=== PATIENT | male | born 1950 ===

== ENCOUNTER 2024-11-11 13:27 | Outpatient (AMB) | payer MEDICARE, OTHER, SELFPAY ==
--- NOTE | 2024-11-11 13:34 | MHC.PC.OV ---
Vital Signs 11/11/24 13:38 Height 6 ft 1 in Weight 120.202 kg BMI 35.0 BP 124/70 Blood Pressure Location Rt brachial Position Sitting Pulse 70 Pulse Source Pulse Oximeter Temp 97.6 F Temp Source Axillary Pulse Oximetry (%) 97 Oxygen Delivery Method Room Air Intake Visit Reasons: medication & hip pain, bilateral Chairman President And Chief Executive Officer Required: No Accompanied by: Self / Same As Patient Allergies iodine Allergy (Mild, Verified 11/11/24 13:35) UNKNOWN Penicillins Allergy (Mild, Verified 11/11/24 13:35) UNKNOWN Medication List - Last Reconciled 11/11/24 by Mili Orozco MD apixaban (Eliquis) 5 mg PO BID atorvastatin 80 mg PO DAILY Basaglar KwikPen U-100 Insulin (insulin glargine) 50 units (0.5 mL) subcut DAILY NS benazepril 10 mg PO DAILY furosemide 40 mg PO DAILY furosemide 20 mg PO DAILY insulin aspart U-100 (Novolog FlexPen U-100 Insulin aspart) 1 sliding scale dose subcut USEASDIRECTD metoprolol succinate ER 50 mg PO DAILY metoprolol succinate ER 100 mg PO DAILY tamsulosin 0.8 mg PO DAILY Tobacco use date assessed: 11/11/24 Fall risk assessment: 1 Fall in past year Last assessed Fall Risk: 11/11/24 Dental Screening Dental Screen Date: 11/11/24 Did you have a dental visit in the last 12 months?: Yes Did you have a dental problem in the last 6 months where you did not have access to dental care?: No HPI HPI Comments History of Present Illness Details The patient is a 73 year old female with a past medical history of MS, BPH, HAIR on CPAP, CAD, htn, hld, diabetes presenting for follow up CV: On metoprolol, furosemide, eliquis. History of CAD s/p PCI. Cath 1999, 2005. Follows with [facility]nard 124/70. Increased exertional dyspnea. Diabetes: On basaglar 50 units daily. Short acting ~12 units TID with meals. Allergic to CGM adhesive. says bg less well controlled HAIR: on cpap MSK: Patient with bilateral hip pain. Not following with neurology for MS. Previously was seeing [facility] Colon cancer screening ROS see HPI PHYSICAL EXAM: GENERAL: Alert and oriented x 3. NAD EYES: EOMI. Anicteric. HENT: Moist mucous membranes. No scleral icterus. No cervical lymphadenopathy. LUNGS: Clear to auscultation bilaterally. CARDIOVASCULAR: Regular rate and rhythm. No murmur. No JVD. ABDOMEN: Soft, non-tender +bs EXTREMITIES: No edema. Non-tender. SKIN: No rashes or lesions. Warm. NEUROLOGIC: No focal neurological deficits. CN II-XII grossly intact PSYCHIATRIC: Cooperative. Appropriate mood and affect [facility] Family History Mother No problems noted. Father No problems noted. Social History Housing: House Patient Tobacco Use Status: Never used Tobacco e-Cigarette/Vaping Use: Never Used service: No Current occupational status: retired Cognitive needs: No Hearing needs: No Vision needs: No Questionnaire PHQ-9 Over the last 2 weeks, how often have you been bothered by any of the following problems? 1. Little interest or pleasure in doing things: not at all 2. Feeling down, depressed, or hopeless: not at all 3. Trouble falling or staying asleep, or sleeping too much: not at all 4. Feeling tired or having little energy: not at all 5. Poor appetite or overeating: not at all 6. Feeling bad about yourself - or that you are a failure or have let yourself or your family down: not at all 7. Trouble concentrating on things, such as reading the newspaper or watching television: not at all 8. Moving or speaking so slowly that other people could have noticed. Or the opposite - being so fidgety or restless that you have been moving around a lot more than usual: not at all 9. Thoughts that you would be better off or of hurting yourself in some way: not at all Total score: 0 Depression Screening Interpretation: Negative Depression Screening Done: Yes 47665 - PHQ-9 Billing: Yes Source: Developed by Drs. Marques Ray, Mary Avalos, Everardo Degroot and colleagues, with an educational eulalia from [employer]. Thrive Questionnaire Date Thrive assessed: 11/11/24 I am a: Patient Within the past 12 months, did the food you bought not last and you didn't have the money to get more?: Never true Within the past 12 months, did you worry whether your food would run out before you got money to buy more?: Never true Do you have trouble paying for medicines?: No Do you have trouble getting transportation to medical appointments?: No Do you have trouble paying your heating and electricity bill?: No Do you have trouble taking care of your child, family member or friend?: No Do you have trouble with day-to-day activities such as bathing, preparing meals, shopping, managing finances, etc.?: No Are you currently unemployed and looking for a job?: No Are you interested in more education?: No THRIVE Score: 0 AUDIT C Alcohol Use Questionnaire (AUDIT-C) 1. How often do you have a drink containing alcohol?: Monthly or less 2. How many drinks containing alcohol do you have on a typical day when you are drinking?: 1 or 2 3. How often do you have six or more drinks on one occasion?: Less than monthly Total Score: 2 OCTAVIO-7 AMB Questionnaire OCTAVIO-7 Date OCTAVIO - 7 assessed: 11/11/24 Feeling nervous, anxious, or on edge: 0 = Not at all Not being able to stop or control worryin = Not at all Worrying too much about different things: 0 = Not at all Trouble relaxin = Not at all Being so restless that it is hard to sit still: 0 = Not at all Becoming easily annoyed or irritable: 0 = Not at all Feeling afraid as if something awful might happen: 0 = Not at all Total OCTAVIO-7 score (0-4 normal; 5-9 mild; 10-14 moderate; 15-21 severe): 0 Source: Developed by Drs. Marques Ray, Mary Avalos, Everardo Degroot and colleagues, with an educational eulalia from [employer]. Physical exam (Primary Care) Vital Signs: Last Vital Signs Temp 97.6 F 11/11/24 13:38 Pulse 70 11/11/24 13:38 BP 124/70 11/11/24 13:38 Pulse Ox 97 11/11/24 13:38 Oxygen Delivery Method Room Air 11/11/24 13:38 BMI result Body Mass Index 35.0 Tobacco/Smoking Status: Tobacco use Status Tobacco use date assessed 11/11/24 11/11/24 13:37 Patient Tobacco Use Status Never used Tobacco 11/11/24 13:37 e-Cigarette/Vaping Use Never Used 11/11/24 13:37 PHQ-9: PHQ-9 Score PHQ-9: Total score 0 11/11/24 14:10 Depression Screening Interpretation: Negative Thrive Assessment: Date of Thrive Assessment Date Thrive assessed 11/11/24 11/11/24 13:37 Coding Level of Care Code New Pt Level 4 (86964) Complex EM visit Add On G2211 Diagnoses Multiple sclerosis G35 Bilateral hip pain M25.551; M25.552 HAIR on CPAP G47.33 Coronary artery disease, unspecified vessel or lesion type, unspecified whether angina present, unspecified whether [place] or transplanted heart I25.10 Associated angina: unspecified whether angina present Coronary Disease-Associated Artery/Lesion type: unspecified vessel or lesion type [place] vs. 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; Z79.4 Additional Codes PHQ-9 - 57864 - PHQ-9 Billing: Yes ([id number]) Assessment & Plan Assessment & Plan (1) Multiple sclerosis: Code(s): G35 - Multiple sclerosis Category: Medical (2) Bilateral hip pain: Code(s): M25.551 - Pain in right hip; M25.552 - Pain in left hip Category: Medical (3) HAIR on CPAP: Code(s): G47.33 - Obstructive sleep apnea (adult) (pediatric) Category: Medical (4) CAD (coronary artery disease): Code(s): I25.10 - Atherosclerotic heart disease of [place] coronary artery without angina pectoris Category: Medical Qualifiers: Associated angina: unspecified whether angina present Coronary Disease-Associated Artery/Lesion type: unspecified vessel or lesion type [place] vs. transplanted heart: unspecified whether [place] or transplanted heart Qualified Code(s): I25.10 - Atherosclerotic heart disease of [place] coronary artery without angina pectoris (5) Exertional dyspnea: Code(s): R06.09 - Other forms of dyspnea Category: Medical (6) Insulin dependent type 2 diabetes mellitus: Code(s): E11.9 - Type 2 diabetes mellitus without complications; Z79.4 - terminal block assembler (current) use of insulin Category: Medical Plan 73 year old to establish care DM-overdue A1C ordered today. insulin ordered. CAD with h/o [place] PCI with increased exertional dyspnea. stress test ordered b/l hip pain xr Orders: Orders Complete Blood Count Auto Diff Today E11.9 - Type 2 diabetes mellitus without complications, G47.33 - Obstructive sleep apnea (adult) (pediatric), I25.10 - Atherosclerotic heart disease of [place] coronary artery without angina pectoris, R06.09 - Other forms of dyspnea, Z12.5 - Encounter for screening for malignant neoplasm of prostate, Z13.0 - Encounter for screening for diseases of the blood and blood-forming organs and certain disorders involving the immune mechanism, Z79.4 - senior care (current) use of insulin Comprehensive Met. Panel Today E11.9 - Type 2 diabetes mellitus without complications, G47.33 - Obstructive sleep apnea (adult) (pediatric), I25.10 - Atherosclerotic heart disease of [place] coronary artery without angina pectoris, R06.09 - Other forms of dyspnea, Z12.5 - Encounter for screening for malignant neoplasm of prostate, Z13.0 - Encounter for screening for diseases of the blood and blood-forming organs and certain disorders involving the immune mechanism, Z79.4 - senior care (current) use of insulin Prostate Specific Antigen Today E11.9 - Type 2 diabetes mellitus without complications, G47.33 - Obstructive sleep apnea (adult) (pediatric), I25.10 - Atherosclerotic heart disease of [place] coronary artery without angina pectoris, R06.09 - Other forms of dyspnea, Z12.5 - Encounter for screening for malignant neoplasm of prostate, Z13.0 - Encounter for screening for diseases of the blood and blood-forming organs and certain disorders involving the immune mechanism, Z79.4 - senior care (current) use of insulin XR hips FUAD min 3V Today M25.551 - Pain in right hip, M25.552 - Pain in left hip NM cardiolite stress test Today I25.10 - Atherosclerotic heart disease of [place] coronary artery without angina pectoris, R06.09 - Other forms of dyspnea Lipid Panel Today E11.9 - Type 2 diabetes mellitus without complications, G47.33 - Obstructive sleep apnea (adult) (pediatric), I25.10 - Atherosclerotic heart disease of [place] coronary artery without angina pectoris, R06.09 - Other forms of dyspnea, Z12.5 - Encounter for screening for malignant neoplasm of prostate, Z13.0 - Encounter for screening for diseases of the blood and blood-forming organs and certain disorders involving the immune mechanism, Z79.4 - senior care (current) use of insulin Hemoglobin A1c Today E11.9 - Type 2 diabetes mellitus without complications, G47.33 - Obstructive sleep apnea (adult) (pediatric), I25.10 - Atherosclerotic heart disease of [place] coronary artery without angina pectoris, R06.09 - Other forms of dyspnea, Z12.5 - Encounter for screening for malignant neoplasm of prostate, Z13.0 - Encounter for screening for diseases of the blood and blood-forming organs and certain disorders involving the immune mechanism, Z79.4 - terminal block assembler (current) use of insulin Microalbumin, Random (w Creat) Today E11.9 - Type 2 diabetes mellitus without complications, G47.33 - Obstructive sleep apnea (adult) (pediatric), I25.10 - Atherosclerotic heart disease of [place] coronary artery without angina pectoris, R06.09 - Other forms of dyspnea, Z12.5 - Encounter for screening for malignant neoplasm of prostate, Z13.0 - Encounter for screening for diseases of the blood and blood-forming organs and certain disorders involving the immune mechanism, Z79.4 - terminal block assembler (current) use of insulin CA lexiscan stress w fidelia Today R06.09 - Other forms of dyspnea Medications: New Basaglar Emigdio U-100 Insulin (insulin glargine) 50 units (0.5 mL) subcut DAILY 45 mL 3RF NS E11.9 - Type 2 diabetes mellitus without complications, Z79.4 - senior care (current) use of insulin benazepril 10 mg PO DAILY 90 tabs 3RF omeprazole 20 mg PO DAILY 90 caps 3RF
[2024-11-11 13:38] VITALS: BP 124/70; PULSE 70; TEMP 36.4; O2SAT 97; BMI 35.0
== END 2024-11-11 14:13 | disposition home or self-care (01) ==
PROVIDERS: PCP Internal Medicine; Visit Provider Internal Medicine
DX: G35 Multiple sclerosis (principal); M25.551 Pain in right hip; M25.552 Pain in left hip; G47.33 Obstructive sleep apnea (adult) (pediatric); I25.10 Atherosclerotic heart disease of native coronary artery without angina pectoris; R06.09 Other forms of dyspnea; E11.9 Type 2 diabetes mellitus without complications; Z79.4 Long term (current) use of insulin

== ENCOUNTER → 2024-11-11 13:27 | Outpatient (BNVA) | payer MEDICARE, SELFPAY | PROVIDERS: PCP Internal Medicine; Visit Provider Internal Medicine | DX: Z13.31 Encounter for screening for depression (principal); G35 Multiple sclerosis; E11.9 Type 2 diabetes mellitus without complications; Z79.4 Long term (current) use of insulin; R06.09 Other forms of dyspnea; M25.551 Pain in right hip; M25.552 Pain in left hip; I25.10 Atherosclerotic heart disease of native coronary artery without angina pectoris | CPT/HCPCS: 96127; 99202 ==

== ENCOUNTER → 2025-01-27 08:02 | Outpatient (REF) | payer MEDICARE, SELFPAY ==
--- NOTE | ~2025-01-27 | NM_ITS ---
Lexiscan Myocardial perfusion study Indication: Shortness of breath Technique: The patient was brought in for a Lexiscan perfusion study on 01/27/2025 and was injected 0.4 mg of Lexiscan intravenously. Within a minute of this injection 40 mCi of sestamibi was given intravenously. Images were obtained using the SPECT gamma camera interlaced with the gating device. Images were obtained in supine position. Resting perfusion study was performed on 01/30/2025. Patient was administered 40 mCi of sestamibi intravenously at rest. Images were then obtained in supine position. Total DLP 156 mGy-cm. Images were processed with the software and compared side to side in short axis, horizontal long axis and vertical long axis views. Findings: Raw aquisition reviewed. Arms by the patient's side. The stress perfusion study showed diminished tracer uptake along the inferolateral wall, lateral wall. There is improvement in uptake with CT attenuation correction and hence suggestive of components of attenuation artifact. The gated study shows mildly reduced LV systolic function with calculated LVEF of 49%. LV cavity is normal in size. The gated study shows reduced contractility in the inferolateral wall/lateral wall. Resting study shows mildly reduced tracer uptake in the inferolateral wall. There is improvement with CT attenuation correction and hence could have components of diaphragmatic attenuation artifact. Gating at rest reveals normal wall motion with ejection fraction at 56%. The findings are consistent with perfusion defect in the inferolateral and lateral wall with reversible and fixed components. Mostly reversible. NM/MO cardiolite stress test Impression: 1. Myocardial perfusion imaging study shows mostly reversible perfusion defect in the inferolateral/lateral wall suggestive of ischemia. Minimal fixed components which could indicate prior small nontransmural infarct. 2. Gated LVEF is 49% during stress and 56% during rest. 3. Transient ischemic dilatation not present. EKG component of the test reported separately. Electronically signed by: Juan Brice MD 01/31/2025 11:05 AM EDT
--- NOTE | 2025-01-27 08:07 | CA_ITS ---
Acquisition Time: 2025-01-27 08:12:52 Total Exercise Time: 00:02:00 Test Indications: SOB Medications: SEE H&P Protocol: LEXISCAN Max HR: 91 BPM 61% of Pred: 148 BPM Max BP: 122/64 mmHG Max Work Load: 1.0 METS Pharmacological stress test with Lexiscan while pt marches in his chair, with reports of SOB, with isolated PACs and PVCs, with normotensive response to injection. Nondiagnostic EKG for ischemia. In recovery, pt treated with IVP Aminophylline 75 mg to reverse Lexiscan after which pt's breathing improved and feeling back to baseline. Nuclear images pending. Test reviewed with Dr. Anne. Referred By: Mili Orozco Electronically Signed By: Addy Hernandez
--- OUTSIDE RECORDS SUMMARY | 2025-01-27 08:07 | XMS_ITS | Patient Health Record ---
Author Organization [facility] Address [address] [place] [id number] Care Team Providers Care Waste Duster Name Role Phone Marques Gastelum Unavailable [phone] Reason For Referral No Information Plan Of Treatment No Information
== END ==
LOC: HO.CARD 08:02
PROVIDERS: Visit Provider Internal Medicine
DX: R06.09 Other forms of dyspnea (principal); I25.10 Atherosclerotic heart disease of native coronary artery without angina pectoris; R06.02 Shortness of breath
CPT/HCPCS: 78452; 93017; A9500; J0280; J2785

== ENCOUNTER → 2025-01-27 08:07 | Outpatient (BNV) | payer MEDICARE, SELFPAY | DX: I49.1 Atrial premature depolarization (principal); I49.3 Ventricular premature depolarization; R06.02 Shortness of breath | CPT/HCPCS: 78452; 93016; 93018 ==

== ENCOUNTER 2025-02-17 13:20 | Outpatient (REF) | payer MEDICARE, SELFPAY ==
--- NOTE | ~2025-02-17 | XR_ITS ---
EXAMINATION: XR BILATERAL HIPS WITH AP PELVIS CLINICAL INFORMATION: M25.551 - Pain in right hip COMPARISON: None available. TECHNIQUE: AP and oblique views both hips. FINDINGS: No acute cortical disruption or malalignment. Mild sclerosis along the articular surface of the acetabulum, symphysis pubis. Sclerosis and the inferior aspect of the sacroiliac joints bilaterally. No lytic or blastic lesions. There is a radiopaque penile prosthesis. XR/XR hips FUAD min 3V IMPRESSION: Mild osteoarthrosis/osteoarthritis both hips. Electronically signed by: Alpesh Valera MD 02/17/2025 02:46 PM EDT
[2025-02-17 14:24] LABS: MANUAL DIFF FLAG NO
[2025-02-17 14:44] LABS: Hematocrit 35.0 % (42.0-52.0); Hemoglobin 12.7 g/dl (14.0-18.0); Imm Gran Abs Auto 0.02 X10*3/uL (0.00-0.03); Imm Gran Pct Auto 0.2 % (0.0-0.4); Lymphocytes Absolute Auto 1.6 X10*3/uL (1.2-4.9); Mean Corpuscular HGB Conc 36.3 g/dl (31.0-36.0); Mean Corpuscular Hemoglobin 31.1 pg (27.0-33.0); Mean Corpuscular Volume 85.6 fL (80.0-98.0); NRBC Abs Auto 0.000 X10*3/uL (0.0-0.012); NRBC Pct Auto 0.0 /100WBC (0.0-0.2); Platelet Count 211 X10*3/uL (160-400); Red Blood Count 4.09 X10*6/uL (4.60-5.80); White Blood Count 8.4 X10*3/uL (4.8-10.8)
[2025-02-17 15:35] LABS: Alanine Aminotransferase 19 U/L (0-40); Albumin Level 4.2 g/dL (3.5-5.0); Alkaline Phosphatase 224 U/L (39-117); Anion Gap 14 (12-20); Aspartate Amino Transferase 23 U/L (5-37); Blood Urea Nitrogen 21 mg/dL (9-16); Calcium 9.2 mg/dL (8.4-10.2); Carbon Dioxide 27 mmol/L (22-29); Chloride 101 mmol/L (96-108); Cholesterol 122 mg/dL (<200); Estimated Glomerular Filt Rate > 60; HDL Cholesterol 47 mg/dL (>40); Potassium 3.5 mmol/L (3.3-5.1); Sodium 138 mmol/L (135-145); Total Protein 7.2 g/dL (6.5-8.0); Triglycerides 52 mg/dL (<150)
[2025-02-17 15:48] LABS: Microalbum/Creatinine Ratio Ur 18.8 ug/mg cr (<30)
[2025-02-17 15:52] LABS: Prostate Specific Antigen 1.31 ng/mL (<0.05-4.0)
[2025-02-20 15:30] LABS: Gamma Glutamyl Transpeptidase 49 U/L (11-51)
== END 2025-02-17 13:21 | disposition home or self-care (01) ==
LOC: HO.XRAY 13:20
PROVIDERS: PCP Physician Assistant; Visit Provider Physician Assistant
DX: Z12.5 Encounter for screening for malignant neoplasm of prostate (principal); R74.8 Abnormal levels of other serum enzymes; I25.10 Atherosclerotic heart disease of native coronary artery without angina pectoris; E11.9 Type 2 diabetes mellitus without complications; G35 Multiple sclerosis; G47.33 Obstructive sleep apnea (adult) (pediatric); M25.551 Pain in right hip; M25.552 Pain in left hip; Z79.4 Long term (current) use of insulin; Z79.01 Long term (current) use of anticoagulants; Z79.82 Long term (current) use of aspirin; Z79.899 Other long term (current) drug therapy
CPT/HCPCS: 36415; 73522; 80048; 80061; 80076; 82043; 82570; 82977; 83036; 84153; 85025; 99212

== ENCOUNTER 2025-02-17 13:20 | Outpatient (AMB) | payer MEDICARE, SELFPAY ==
--- NOTE | 2025-02-17 13:28 | A.OFFPC_ITS ---
Vital Signs 02/17/25 13:37 Height 6 ft 1 in Weight 118.388 kg BMI 34.4 BP 120/62 Respiration 14 Pulse 72 Pulse Source Pulse Oximeter Temp 98.0 F Temp Source Temporal Artery Scan Pulse Oximetry (%) 97 Oxygen Delivery Method Room Air Intake Visit Reasons: routine - see comments Water Superintendent Required: No Accompanied by: Self / Same As Patient Allergies iodine Allergy (Mild, Verified 02/17/25 13:28) UNKNOWN Penicillins Allergy (Mild, Verified 02/17/25 13:28) UNKNOWN Medication List - Last Reconciled 02/17/25 by TITI Alicea amlodipine 5 mg PO DAILY apixaban (Eliquis) 5 mg PO BID aspirin 81 mg PO DAILY atorvastatin 80 mg PO DAILY Basaglar KwikPen U-100 Insulin (insulin glargine) 50 units (0.5 mL) subcut DAILY NS benazepril 10 mg PO DAILY furosemide 80 mg PO DAILY insulin aspart U-100 (Novolog FlexPen U-100 Insulin aspart) 1 sliding scale dose subcut USEASDIRECTD metoprolol succinate ER 50 mg PO DAILY metoprolol succinate ER 100 mg PO DAILY nitroglycerin mg sublingual omeprazole 20 mg PO BID tamsulosin 0.8 mg PO DAILY Tobacco use date assessed: 11/11/24 Dental Screening Dental Screen Date: 11/11/24 HPI HPI Comments History of Present Illness Details The patient is a 73 year old female with a past medical history of MS, BPH, HAIR on CPAP, CAD, htn, hld, diabetes presenting for follow up CV: On metoprolol, furosemide, eliquis. History of CAD s/p PCI. Cath 1999, 2005. Follows with [facility] 124/70. Increased exertional dyspnea with chest pressure, was intermittent now constant. Stress test recently with reversible defect- infralateral and lateral wall motion abnormality, concern for circumflex artery which was repaired in 1999. Using nitro several times per day. Type I Diabetes: On basaglar 50 units daily. Short acting ~12 units TID with meals. Allergic to CGM adhesive. says bg less well controlled- fasting this am under 200. Eye exams overdue. Following with [facility]. HAIR: on cpap MSK: Patient with bilateral hip pain. MS- follows with [facility] neurology. Previously was seeing [facility]. Since starting vitamin D no further progression. Concerns: Bilateral hip pain Health Maintenance: Overdue for colonoscopy ROS see HPI EXAM: Constitutional - Awake and Alert, No apparent distress Eyes - PERRL Cardiovascular - S1S2, RRR, systolic ejection murmur best heart at aortic area II/. No edema Respiratory - Normal lung expansion, Normal respiratory effort, No respiratory distress, CTA bilaterally Extremities - no calf tenderness bilaterally, no swelling Skin - Warm/Dry Neurological - Alert & oriented x3 Psychological - Appropriate affect [facility] Medical History (Updated 02/17/25 @ 14:00 by TITI Alicea) HAIR on CPAP Multiple sclerosis CAD (coronary artery disease) Type 1 diabetes Family History Mother No problems noted. Father No problems noted. Social History Housing: House Patient Tobacco Use Status: Never used Tobacco e-Cigarette/Vaping Use: Never Used service: No Current occupational status: retired Cognitive needs: No Hearing needs: No Vision needs: No Questionnaire Thrive Questionnaire Date Thrive assessed: 11/11/24 OCTAVIO-7 AMB Questionnaire OCTAVIO-7 Date OCTAVIO - 7 assessed: 11/11/24 Source: Developed by Drs. Marques Ray, Mary Avalos, Everardo Degroot and colleagues, with an educational eulalia from [employer]. Physical exam (Primary Care) Vital Signs: Last Vital Signs Temp 98.0 F 02/17/25 13:37 Pulse 72 02/17/25 13:37 Resp 14 02/17/25 13:37 BP 120/62 02/17/25 13:37 Pulse Ox 97 02/17/25 13:37 Oxygen Delivery Method Room Air 02/17/25 13:37 BMI result Body Mass Index 34.4 Tobacco/Smoking Status: Tobacco use Status Tobacco use date assessed 11/11/24 02/17/25 13:31 Patient Tobacco Use Status Never used Tobacco 02/17/25 13:31 e-Cigarette/Vaping Use Never Used 02/17/25 13:31 Thrive Assessment: Date of Thrive Assessment Date Thrive assessed 11/11/24 02/17/25 13:31 Coding Level of Care Code Est Pt Level 4 (47418) Complex EM visit Add On G2211 Diagnoses Coronary artery disease, unspecified vessel or lesion type, unspecified whether angina present, unspecified whether [place] or transplanted heart I25.10 Coronary Disease-Associated Artery/Lesion type: unspecified vessel or lesion type [place] vs. transplanted heart: unspecified whether [place] or transplanted heart Associated angina: unspecified whether angina present Type 1 diabetes E10.9 HAIR on CPAP G47.33 Multiple sclerosis G35 Assessment & Plan Assessment & Plan (1) CAD (coronary artery disease): Code(s): I25.10 - Atherosclerotic heart disease of [place] coronary artery without angina pectoris Category: Medical Qualifiers: Coronary Disease-Associated Artery/Lesion type: unspecified vessel or lesion type [place] vs. transplanted heart: unspecified whether [place] or transplanted heart Associated angina: unspecified whether angina present Qualified Code(s): I25.10 - Atherosclerotic heart disease of [place] coronary artery without angina pectoris Plan: Unstable, cardiology aware. Encouraged to continue reaching out to Cardiology and calibration laboratory technician. Can continue using baby aspirin as well as nitro as needed. Continue ASA, Eliquis, atorvastatin. Lipid panel ordered (2) Type 1 diabetes: Code(s): E10.9 - Type 1 diabetes mellitus without complications Category: Medical Plan: Will obtain [facility] records. A1c ordered. Continue Basaglar and NovoLog as prescribed. Schedule eye exam (3) HAIR on CPAP: Code(s): G47.33 - Obstructive sleep apnea (adult) (pediatric) Category: Medical Plan: Continue CPAP use (4) Multiple sclerosis: Code(s): G35 - Multiple sclerosis Category: Medical Plan: Stable. Continue following with [facility]. Will request records Plan Follow-up in the office in 4 months. Advised to schedule follow-up with [facility]. Labs to be completed following visit today Orders: Orders Basic Metabolic Panel Today E11.9 - Type 2 diabetes mellitus without complications, G35 - Multiple sclerosis, G47.33 - Obstructive sleep apnea (adult) (pediatric), I25.10 - Atherosclerotic heart disease of [place] coronary artery without angina pectoris, Z79.4 - intermediate project manager (current) use of insulin Hemoglobin A1c Today E11.9 - Type 2 diabetes mellitus without complications, G35 - Multiple sclerosis, G47.33 - Obstructive sleep apnea (adult) (pediatric), I25.10 - Atherosclerotic heart disease of [place] coronary artery without angina pectoris, Z79.4 - intermediate project manager (current) use of insulin Liver Panel Today E11.9 - Type 2 diabetes mellitus without complications, G35 - Multiple sclerosis, G47.33 - Obstructive sleep apnea (adult) (pediatric), I25.10 - Atherosclerotic heart disease of [place] coronary artery without angina pectoris, Z79.4 - intermediate project manager (current) use of insulin Complete Blood Count Auto Diff Today E11.9 - Type 2 diabetes mellitus without complications, G35 - Multiple sclerosis, G47.33 - Obstructive sleep apnea (adult) (pediatric), I25.10 - Atherosclerotic heart disease of [place] coronary artery without angina pectoris, Z79.4 - [facility] (current) use of insulin Microalbumin, Random (w Creat) Today E11.9 - Type 2 diabetes mellitus without complications, G35 - Multiple sclerosis, G47.33 - Obstructive sleep apnea (adult) (pediatric), I25.10 - Atherosclerotic heart disease of [place] coronary artery without angina pectoris, Z79.4 - [facility] (current) use of insulin Lipid Panel Today E11.9 - Type 2 diabetes mellitus without complications, G35 - Multiple sclerosis, G47.33 - Obstructive sleep apnea (adult) (pediatric), I25.10 - Atherosclerotic heart disease of [place] coronary artery without angina pectoris, Z79.4 - [facility] (current) use of insulin Prostate Specific Antigen Today E11.9 - Type 2 diabetes mellitus without complications, G35 - Multiple sclerosis, G47.33 - Obstructive sleep apnea (adult) (pediatric), I25.10 - Atherosclerotic heart disease of [place] coronary artery without angina pectoris, Z79.4 - [facility] (current) use of insulin XR hips FUAD min 3V Today M25.551 - Pain in right hip, M25.552 - Pain in left hip Referrals Gastroenterology Referral Z12.11 - Encounter for screening for malignant neoplasm of colon Medications: Changed From omeprazole 20 mg PO BID To omeprazole 20 mg PO DAILY 180 caps 0RF
[2025-02-17 13:37] VITALS: BP 120/62; PULSE 72; RESP 14; TEMP 36.7; O2SAT 97; BMI 34.4
--- OUTSIDE RECORDS SUMMARY | 2025-02-17 15:56 | XMS_ITS | Patient Health Record ---
Author Organization [facility] Address [address] [place] [id number] Care Team Providers Care Designated Broker Name Role Phone Marques Gastelum Unavailable [phone] Reason For Referral No Information Plan Of Treatment No Information
== END 2025-02-17 14:00 | disposition home or self-care (01) ==
LOC: HO.HMCHD 13:21
PROVIDERS: PCP Physician Assistant; Visit Provider Physician Assistant
DX: I25.10 Atherosclerotic heart disease of native coronary artery without angina pectoris (principal); E10.9 Type 1 diabetes mellitus without complications; G47.33 Obstructive sleep apnea (adult) (pediatric); G35 Multiple sclerosis

== ENCOUNTER → 2025-02-17 14:30 | Outpatient (BNV) | payer MEDICARE, SELFPAY | PROVIDERS: PCP Physician Assistant; Visit Provider Radiology Diagnostic Radiology | DX: M16.11 Unilateral primary osteoarthritis, right hip (principal) | CPT/HCPCS: 73522 ==

== ENCOUNTER 2025-02-17 17:52 | Outpatient (REF) | payer MEDICARE, SELFPAY | END 2025-02-17 17:53 | disposition home or self-care (01) | LOC: HO.LAB 17:52 | PROVIDERS: Visit Provider Physician Assistant | DX: Z13.89 Encounter for screening for other disorder (principal) ==

== ENCOUNTER → 2025-05-12 09:55 | Outpatient (REF) | payer MEDICARE, SELFPAY ==
--- NOTE | ~2025-05-12 | NM_ITS ---
EXAMINATION: NM BONE SCAN WHOLE BODY HISTORY: R74.8 - Abnormal levels of other serum enzymes. TECHNIQUE: A total body bone scan was performed following the intravenous administration of 36 mCi technetium 99m-MDP. Delayed whole body planar images were obtained. COMPARISON: There are no prior studies available for comparison. FINDINGS: There are mild bandlike foci of increased activity in the mid and lower thoracic spine as well as at approximately the L1 and L5 vertebral levels. These could represent subacute compression fractures. No abnormal activity is seen in the pelvis, although a markedly distended urinary bladder obscures the sacrum. There is mild increased uptake at the knees which is likely degenerative in nature. No abnormal rib, skull, sternal, or shoulder activity is identified. There is normal bilateral renal uptake. NM/NM bone scan whole body IMPRESSION: 1. Mild bandlike foci of increased activity in the mid and lower thoracic spine as well as at the L1 and L5 vertebral levels. These could represent subacute compression fractures. Plain film correlation is suggested. 2. Limited evaluation of the sacrum due to a markedly distended urinary bladder. Otherwise unremarkable bone scan. Electronically signed by: Marques Raygoza MD 05/12/2025 02:03 PM [facility]
== END ==
LOC: HO.NUCMED 09:55
PROVIDERS: PCP Physician Assistant; Visit Provider Physician Assistant
DX: R74.8 Abnormal levels of other serum enzymes (principal); M89.8X9 Other specified disorders of bone, unspecified site
CPT/HCPCS: 78306; A9503

== ENCOUNTER → 2025-05-12 09:57 | Outpatient (BNV) | payer MEDICARE, SELFPAY | PROVIDERS: PCP Physician Assistant; Visit Provider Radiology Diagnostic Radiology | DX: R74.8 Abnormal levels of other serum enzymes (principal) | CPT/HCPCS: 78306 ==